=== PATIENT | male | born 1970 | race African-American/Black ===

== ENCOUNTER 2024-02-24 17:16 | Inpatient (IN) | payer SELFPAY ==
[~2024-02-24] VITALS: Ht 170.2 cm; Wt 90.7 kg
[2024-02-24] MEDS ORDERED: ONDANSETRON 4 MG/2 ML VIAL ONE (17:42)
[2024-02-24] MEDS ORDERED: HYDROMORPHONE 1 MG/1 ML DISP.SYRIN ONE ×4 (17:42→21:05)
[2024-02-24] MEDS ORDERED: diphenhydrAMINE 50 MG/1 ML VIAL ONE ×2 (17:51→18:29)
[2024-02-24] MEDS ORDERED: DEXAMETHASONE SOD PHOSPHATE 10 MG INJ ONE (17:51)
[2024-02-24] MEDS ORDERED: FAMOTIDINE. 20 MG/2 ML VIAL IV ONE (17:52)
[2024-02-24 17:54] LABS: BASOPHILS % (AUTO) 0.4 % (0.0-2.0); EOSINOPHILS # (AUTO) 0.6 K/uL (0.0-0.7); EOSINOPHILS % (AUTO) 7.1 % (0.0-7.0); LYMPHOCYTES # (AUTO) 1.1 K/uL (0.8-4.8); LYMPHOCYTES % (AUTO) 12.1 % (20.5-51.5); MEAN CORPUSCULAR HEMOGLOBIN 31.3 uug (23.8-33.4); MEAN CORPUSCULAR HGB CONC 34 g/dL (32.5-36.3); MEAN CORPUSCULAR VOLUME 91.4 fL (73.0-96.2); MONOCYTES # (AUTO) 1.4 K/uL (0.1-1.30); MONOCYTES % (AUTO) 15.6 % (0.0-11.0); NEUTROPHILS # (AUTO) 5.8 K/uL (1.8-8.9); NEUTROPHILS % (AUTO) 64.8 % (38.5-71.5); PLATELET COUNT (AUTO) 285 K/uL (152-348); RED CELL DISTRIBUTION WIDTH 17.7 % (12.1-16.2); WHITE BLOOD COUNT (AUTO) 8.9 K/uL (3.6-10.2)
[2024-02-24 17:55] LABS: *BILIRUBIN,URIN 1+ (NEGATIVE); *BLOOD, URINE 3+ (NEGATIVE); *CLARITY,URINE SLIGHTLY CLOUDY (CLEAR); *COLOR,URINE RED (YELLOW); *KETONES,URINE NEGATIVE (NEGATIVE); *PROTEIN,URINE 3+ (NEGATIVE); *UROBILINOGEN,URINE 0.2 E.U./dl (NORMAL); LEUKOCYTE ESTERASE ,URINE TRACE (NEGATIVE); NITRITE, URINE POSITIVE (NEGATIVE); PH,URINE 8.5 (5.0-8.0); UGLUCOSE NEGATIVE (NEGATIVE)
[2024-02-24 17:59] LABS: DIFFERENTIAL COMMENT 1
[2024-02-24] MEDS: IV NORMAL SALINE 1000 ML BAG IV ONE (18:03)
[2024-02-24] MEDS: HYDROMORPHONE 1 MG/1 ML DISP.SYRIN IV ONE ×4 (18:03→21:16)
[2024-02-24] MEDS: ONDANSETRON 4 MG/2 ML VIAL IV ONE (18:04)
[2024-02-24] MEDS: DEXAMETHASONE SOD PHOSPHATE 4 MG INJ IV ONE (18:05)
[2024-02-24 18:06] LABS: CALCIUM 9.3 mg/dL (8.5-10.1); CARBON DIOXIDE 26 mmol/L (21-32); CHLORIDE 97 mmol/L (98-107); CREATININE 5.9 mg/dL (0.6-1.3); GLUCOSE 97 mg/dL (74-106); POTASSIUM 3.6 mmol/L (3.5-5.1); SODIUM SERUM 139 mmol/L (136-145); UREA NITROGEN, BLOOD 28 mg/dL (7-18)
[2024-02-24] MEDS: diphenhydrAMINE 50 MG/1 ML VIAL IV ONE ×2 (18:06→18:34)
[2024-02-24] MEDS: FAMOTIDINE. 20 MG/2 ML VIAL IV ONE (18:06)
[2024-02-24 18:12] LABS: BACTERIA,URINE FEW /HPF (NONE SEEN); RBC,URINE 20-50 /HPF (0-3); WBC,URINE 0-3 /HPF (0-3)
[2024-02-24 18:12] LABS: ALANINE AMINOTRANSFERASE 22 U/L (16-63); ALBUMIN 3.9 g/dL (3.4-5.0); ALKALINE PHOSPHATASE 241 U/L (50-136); ASPARTATE AMINOTRANSFERASE 17 U/L (15-37); BILIRUBIN,TOTAL 0.5 mg/dL (0.2-1.0); LIPASE 37 U/L (16-77); TOTAL PROTEIN, SERUM 8.7 g/dL (6.4-8.2)
[2024-02-24 18:13] LABS: BILIRUBIN,DIRECT < 0.1 mg/dL (0.0-0.2)
[2024-02-24 18:13] LABS: SQUAMOUS EPITHELIAL CELL,UR MODERATE /HPF (NONE SEEN)
[2024-02-24 19:00] LABS: ANISOCYTOSIS 1+; EOSINOPHILS % (MANUAL) 9 % (0-8); LYMPHOCYTES % (MANUAL) 11 % (20-40); MONOCYTES % (MANUAL) 12 % (2-10); NEUTROPHILS % (MANUAL) 68 % (42-75); PLATELET ESTIMATE ADEQUATE
[2024-02-24 19:14] LABS: CALCIUM 8.7 mg/dL (8.5-10.1); CREATININE 5.8 mg/dL (0.6-1.3); POTASSIUM 3.5 mmol/L (3.5-5.1)
[2024-02-24] MEDS ORDERED: CEFTRIAXONE /D5W 50ML IVPB **ER PYXIS IV ONE (19:27)
[2024-02-24] MEDS: CEFTRIAXONE 1 G in IV DEXTROSE 5% 50 ML IV ONE (19:36)
[2024-02-24] MEDS: BISACODYL 10 MG SUPP.RECT RC ONE (21:00)
[2024-02-24] MEDS: LACTULOSE 20 G/30 ML LIQUID UDC PO ONE (21:00)
[2024-02-24] MEDS ORDERED: FUROSEMIDE 20 MG/2 ML VIAL ONE (21:06)
[2024-02-24] MEDS: FUROSEMIDE 20 MG/2 ML VIAL IV ONE (21:16)
[2024-02-24 22:56] VITALS: BP 134/101; TEMP 98.2; O2SAT 100
[2024-02-24] MEDS: IV NS 1000 ML 1,000 ML IV PRN (23:03)
[2024-02-25] MEDS: BISACODYL 10 MG SUPP.RECT RC ONE (01:23)
[2024-02-25] MEDS: LACTULOSE 20 G/30 ML LIQUID UDC PO ONE (01:24)
[2024-02-25 05:15] VITALS: BP 111/68; TEMP 98.4; O2SAT 98
[2024-02-25] MEDS: HYDROMORPHONE 1 MG/1 ML DISP.SYRIN IV PRN (05:34)
[2024-02-25 06:20] LABS: BASOPHILS % (AUTO) 0.4 % (0.0-2.0); EOSINOPHILS # (AUTO) 0.6 K/uL (0.0-0.7); EOSINOPHILS % (AUTO) 6.1 % (0.0-7.0); HEMATOCRIT 28.4 % (36.7-47.1); HEMOGLOBIN 9.8 g/dL (12.5-16.3); LYMPHOCYTES # (AUTO) 0.8 K/uL (0.8-4.8); LYMPHOCYTES % (AUTO) 8.3 % (20.5-51.5); MEAN CORPUSCULAR HEMOGLOBIN 32.1 uug (23.8-33.4); MEAN CORPUSCULAR HGB CONC 34 g/dL (32.5-36.3); MEAN CORPUSCULAR VOLUME 93.3 fL (73.0-96.2); MONOCYTES # (AUTO) 1.5 K/uL (0.1-1.30); MONOCYTES % (AUTO) 15.6 % (0.0-11.0); NEUTROPHILS # (AUTO) 6.6 K/uL (1.8-8.9); NEUTROPHILS % (AUTO) 69.6 % (38.5-71.5); PLATELET COUNT (AUTO) 244 K/uL (152-348); RED BLOOD CELL COUNT(AUTO) 3.04 MIL/uL (4.06-5.63); RED CELL DISTRIBUTION WIDTH 17.9 % (12.1-16.2); WHITE BLOOD COUNT (AUTO) 9.5 K/uL (3.6-10.2)
[2024-02-25 06:39] LABS: CALCIUM 7.9 mg/dL (8.5-10.1); MAGNESIUM 2.1 mg/dL (1.8-2.4); PHOSPHOROUS 7.9 mg/dL (2.5-4.9); POTASSIUM 4.6 mmol/L (3.5-5.1)
[2024-02-25 06:45] LABS: DIFFERENTIAL COMMENT 1
[2024-02-25 06:51] LABS: CREATININE 7.5 mg/dL (0.6-1.3)
[2024-02-25 07:30] VITALS: BP 134/87; TEMP 99.8; O2SAT 95
[2024-02-25] MEDS: CEFTRIAXONE 1 G in IV DEXTROSE 5% 50 ML IV SCH (08:33)
[2024-02-25] MEDS ORDERED: HYDROMORPHONE 1 MG/1 ML DISP.SYRIN IV PRN (09:00)
[2024-02-25] MEDS: HYDROMORPHONE 1 MG/1 ML DISP.SYRIN IV ONE ×4 (09:26→20:05)
[2024-02-25 10:11] LABS: ANISOCYTOSIS 1+; EOSINOPHILS % (MANUAL) 4 % (0-8); HYPOCHROMASIA 1+; LYMPHOCYTES % (MANUAL) 7 % (20-40); MONOCYTES % (MANUAL) 13 % (2-10); NEUTROPHILS % (MANUAL) 76 % (42-75); PLATELET ESTIMATE ADEQUATE
[2024-02-25 11:19] VITALS: BP 119/71; TEMP 97.5; O2SAT 98
[2024-02-25 15:27] VITALS: BP 131/68; TEMP 97.8; O2SAT 98
[2024-02-25 16:03] VITALS: O2SAT 98
[2024-02-25 18:33] LABS: *BILIRUBIN,URIN NEGATIVE (NEGATIVE); *BLOOD, URINE 3+ (NEGATIVE); *CLARITY,URINE CLEAR (CLEAR); *KETONES,URINE NEGATIVE (NEGATIVE); *PROTEIN,URINE 2+ (NEGATIVE); *UROBILINOGEN,URINE 0.2 E.U./dl (NORMAL); LEUKOCYTE ESTERASE ,URINE NEGATIVE (NEGATIVE); NITRITE, URINE NEGATIVE (NEGATIVE); PH,URINE 7.5 (5.0-8.0); UGLUCOSE NEGATIVE (NEGATIVE)
[2024-02-25 18:43] LABS: *COLOR,URINE PINK (YELLOW)
[2024-02-25 18:49] LABS: *CREATININE,URINE 23.5 mg/dL (30-125); *URINE TOTAL PROTEIN RANDOM 125.7 mg/dL (<150/24HR)
[2024-02-25 19:12] LABS: BACTERIA,URINE MODERATE /HPF (NONE SEEN); SQUAMOUS EPITHELIAL CELL,UR MODERATE /HPF (NONE SEEN); WBC,URINE 0-3 /HPF (0-3)
[2024-02-25 19:59] VITALS: BP 139/76; TEMP 98.4; O2SAT 95
[2024-02-26] VITALS (9 sets, daily range): BP systolic 132–176; BP diastolic 67–94; TEMP 97.7–98.4; O2SAT 95–98
[2024-02-26] MEDS: HYDROMORPHONE 1 MG/1 ML DISP.SYRIN IV ONE (06:28)
[2024-02-26 06:52] LABS: BASOPHILS % (AUTO) 0.5 % (0.0-2.0); EOSINOPHILS # (AUTO) 0.6 K/uL (0.0-0.7); EOSINOPHILS % (AUTO) 7.1 % (0.0-7.0); HEMATOCRIT 25.3 % (36.7-47.1); HEMOGLOBIN 8.7 g/dL (12.5-16.3); LYMPHOCYTES # (AUTO) 0.9 K/uL (0.8-4.8); LYMPHOCYTES % (AUTO) 11.1 % (20.5-51.5); MEAN CORPUSCULAR HEMOGLOBIN 32.1 uug (23.8-33.4); MEAN CORPUSCULAR HGB CONC 35 g/dL (32.5-36.3); MEAN CORPUSCULAR VOLUME 92.9 fL (73.0-96.2); MONOCYTES # (AUTO) 1.3 K/uL (0.1-1.30); MONOCYTES % (AUTO) 16.1 % (0.0-11.0); NEUTROPHILS # (AUTO) 5.4 K/uL (1.8-8.9); NEUTROPHILS % (AUTO) 65.2 % (38.5-71.5); PLATELET COUNT (AUTO) 200 K/uL (152-348); RED BLOOD CELL COUNT(AUTO) 2.72 MIL/uL (4.06-5.63); RED CELL DISTRIBUTION WIDTH 17.7 % (12.1-16.2); WHITE BLOOD COUNT (AUTO) 8.2 K/uL (3.6-10.2)
[2024-02-26 06:57] LABS: DIFFERENTIAL COMMENT 1
[2024-02-26 07:18] LABS: CALCIUM 8.7 mg/dL (8.5-10.1); MAGNESIUM 2.3 mg/dL (1.8-2.4); POTASSIUM 4.8 mmol/L (3.5-5.1)
[2024-02-26 07:31] LABS: LYMPHOCYTES % (MANUAL) 0 % (20-40); NEUTROPHILS % (MANUAL) 0 % (42-75)
[2024-02-26 08:36] LABS: CREATININE 9.7 mg/dL (0.6-1.3); PHOSPHOROUS 8.6 mg/dL (2.5-4.9)
[2024-02-26] MEDS ORDERED: HYDROMORPHONE 1 MG/1 ML DISP.SYRIN SQ PRN (09:15)
[2024-02-26] MEDS: SEVELAMER CARBONATE 800 MG TABLET PO SCH (09:40)
[2024-02-26] MEDS: HYDROMORPHONE 1 MG/1 ML DISP.SYRIN SQ PRN (09:45)
[2024-02-27 05:47] VITALS: O2SAT 98
[2024-02-27 06:44] VITALS: BP 157/75; TEMP 98.1; O2SAT 98
[2024-02-27 07:01] LABS: BASOPHILS % (AUTO) 0.3 % (0.0-2.0); EOSINOPHILS # (AUTO) 0.6 K/uL (0.0-0.7); HEMATOCRIT 24.9 % (36.7-47.1); HEMOGLOBIN 8.7 g/dL (12.5-16.3); LYMPHOCYTES # (AUTO) 0.8 K/uL (0.8-4.8); LYMPHOCYTES % (AUTO) 9.2 % (20.5-51.5); MEAN CORPUSCULAR HGB CONC 35 g/dL (32.5-36.3); MEAN CORPUSCULAR VOLUME 91.5 fL (73.0-96.2); MONOCYTES # (AUTO) 1.2 K/uL (0.1-1.30); MONOCYTES % (AUTO) 13.8 % (0.0-11.0); NEUTROPHILS # (AUTO) 6.1 K/uL (1.8-8.9); NEUTROPHILS % (AUTO) 69.7 % (38.5-71.5); PLATELET COUNT (AUTO) 205 K/uL (152-348); RED BLOOD CELL COUNT(AUTO) 2.73 MIL/uL (4.06-5.63); RED CELL DISTRIBUTION WIDTH 17.5 % (12.1-16.2); WHITE BLOOD COUNT (AUTO) 8.8 K/uL (3.6-10.2)
[2024-02-27 07:03] LABS: DIFFERENTIAL COMMENT 1
[2024-02-27 07:13] LABS: ALBUMIN 3.3 g/dL (3.4-5.0); BILIRUBIN,TOTAL 0.3 mg/dL (0.2-1.0); CALCIUM 9.3 mg/dL (8.5-10.1); CREATININE 10.3 mg/dL (0.6-1.3); MAGNESIUM 2.3 mg/dL (1.8-2.4); PHOSPHOROUS 7.8 mg/dL (2.5-4.9); POTASSIUM 4.5 mmol/L (3.5-5.1)
[2024-02-27] MEDS ORDERED: HYDROMORPHONE 1 MG/1 ML DISP.SYRIN SQ PRN (07:15)
[2024-02-27 08:06] LABS: COMPLEMENT, C3 SERUM 161 mg/dL (82-167); COMPLEMENT, C4 SERUM 45 mg/dL (12-38)
[2024-02-27 11:06] LABS: *ANTI-SCLERODERMA-70 AB <0.2 AI (0.0-0.9); *RNP ANTIBODIES <0.2 AI (0.0-0.9); *SJOGREN'S ANTI-SS-A <0.2 AI (0.0-0.9); *SJOGREN'S ANTI-SS-B <0.2 AI (0.0-0.9); *SMITH ANTIBODIES <0.2 AI (0.0-0.9); ANTI-DNA(DS) AB, QN <1 IU/mL (0-9); ANTI-NUCLEAR AB DIRECT Negative (Negative)
[2024-02-28 04:11] LABS: HEPATITIS B SURFACE AB, QUAL Non Reactive (.); HEPATITIS B SURFACE AG Negative (Negative); HEPATITIS C VIRUS ANTIBODY Non Reactive (Non Reactive)
== END 2024-02-27 07:00 | disposition left against medical advice (07) | DRG 545 ==
LOC: ER 17:24 → TELE3 21:32
PROVIDERS: ADMIT Nurse Practitioner Acute Care; ATTEND Nurse Practitioner Acute Care
DX: M31.0 Hypersensitivity angiitis (principal); N00.9 Acute nephritic syndrome with unspecified morphologic changes; N17.0 Acute kidney failure with tubular necrosis; D68.59 Other primary thrombophilia; N30.91 Cystitis, unspecified with hematuria; R31.0 Gross hematuria; J96.01 Acute respiratory failure with hypoxia; Z53.29 Procedure and treatment not carried out because of patient's decision for other reasons; T40.2X5A Adverse effect of other opioids, initial encounter; N23 Unspecified renal colic; Y92.538 Other ambulatory health services establishments as the place of occurrence of the external cause; E66.01 Morbid (severe) obesity due to excess calories; Z68.31 Body mass index [BMI] 31.0-31.9, adult; N28.1 Cyst of kidney, acquired; K59.00 Constipation, unspecified; Z98.890 Other specified postprocedural states; D64.9 Anemia, unspecified; Z87.442 Personal history of urinary calculi; R91.8 Other nonspecific abnormal finding of lung field; R93.422 Abnormal radiologic findings on diagnostic imaging of left kidney
CPT/HCPCS: 36415; 70030-TC; 71045; 83690; 83735; 84100; 84300; 85025; 85651; 85730; 86038; 86160; 86706; 86803; 87340; A4606; A4663; G0378; J0696; J1100; J1170; J1200; J1940; J2405; J3490; J7040; J7042